=== PATIENT | male | born 1950 | race Caucasian/White ===

== ENCOUNTER 2022-10-09 18:10 | Emergency (ER) | payer OTHER ==
[2022-10-09 18:15] VITALS: PULSE 90; RESP 18; TEMP 99; BMI 26.3
[2022-10-09 19:56] LABS: BASO % 0.6 % (0-2.0); EOS % 0.8 % (0-4.5); HEMOGLOBIN 12.6 GM/dL (11.7-16.9); LYMPH % 13.9 % (8-40); MCH 28.8 pg (25.7-33.7); MEAN CELL VOLUME 84.7 fl (80-96); MONO % 12.2 % (3.8-10.2); NEUT % 72.5 % (42.8-82.8); PLATELET COUNT 223 10^3/uL (134-434); RBC 4.37 M/mm3 (4.00-5.60); RDW 14.5 % (11.9-15.9)
[2022-10-09 20:24] LABS: CALCIUM 9.3 mg/dL (8.5-10.1)
[2022-10-09 20:25] LABS: ALBUMIN 3.8 g/dl (3.4-5.0); BLOOD UREA NITROGEN 16.9 mg/dL (7-18)
[2022-10-09 20:30] LABS: BILIRUBIN,TOTAL 1.1 mg/dL (0.2-1)
[2022-10-09] MEDS ORDERED: ACETAMINOPHEN 1000 MG/100 ML BAG IVPB ONE (21:37)
[2022-10-09 21:48] VITALS: BP 132/88
== END 2022-10-09 22:18 | disposition home or self-care (01) ==
LOC: JER 18:10
DX: I10 Essential (primary) hypertension (principal)
CPT/HCPCS: 36415; 71045-TC-FY; 80053; 84484; 85025; 93005; 93010; 99285-25